=== PATIENT | male | born 1960 | race Caucasian/White ===

== ENCOUNTER → 2018-12-14 08:43 | Outpatient (CLI) | payer OTHER, SELFPAY ==
[2018-12-14 09:37] LABS: Influenza A and B by PCR Rapid Negative (Negative)
== END ==
PROVIDERS: Visit Provider Physician Assistant
DX: R50.9 Fever, unspecified (principal); R07.0 Pain in throat
CPT/HCPCS: 87070; 87400

== ENCOUNTER → 2019-02-18 08:15 | Outpatient (CLI) | payer OTHER, SELFPAY ==
[2019-02-18 09:52] LABS: Appearance Urine UA CLEAR; Bilirubin Urine UA NEGATIVE (NEGATIVE); Color Urine UA YELLOW; Glucose Urine UA NEGATIVE (Negative); Ketones Urine UA NEGATIVE (NEGATIVE); Leukocyte Esterase Urine UA NEGATIVE (NEGATIVE); Nitrite Urine UA NEGATIVE (Negative); Occult Blood Urine UA TRACE-LYSED (Negative); Protein Urine UA NEGATIVE (Negative); Specific Gravity Urine UA 1.015 (1.000-1.035); Urobilinogen Urine UA 0.2 E.U./dL (0.2)
[2019-02-18 09:53] LABS: Hematocrit 32.9 % (41-53); Mean Corpuscular HGB Conc 33.5 % (30-36); Mean Corpuscular Hemoglobin 29.8 PG (26-34); Mean Corpuscular Volume 89.2 fL (80-100); Platelet Count 229 X10^3/uL (150-400); Red Blood Cell Count 3.69 X10^6/uL (4.5-5.9); Red Cell Distribution Width 15.4 % (11.6-14.8); White Blood Cell Count 7.4 X10^3/uL (4.5-11.0)
[2019-02-18 10:07] LABS: Alanine Aminotransferase 18 IU/L (21-72); Albumin 3.8 g/dL (3.5-5.0); Albumin Globulin Ratio 1.3 (1.0-2.8); Alkaline Phosphatase 68 U/L (38-126); Aspartate Aminotransferase 16 IU/L (17-59); BUN Creatinine Ratio 34.4 (6-22); Bilirubin Total 0.5 mg/dL (0.2-1.3); Blood Urea Nitrogen 31 mg/dL (9-20); Calcium 9.9 mg/dL (8.4-10.2); Carbon Dioxide 28 mmol/L (22-32); Chloride 102 mmol/L (98-107); Cholesterol 136 mg/dL (140-199); Estimated Glomerular Filt Rate > 60.0 mL/min (>60); Glucose 104 mg/dL (80-110); HDL Cholesterol 58 mg/dL (40-60); HEMOLYSIS < 15 (0-50); LDL Cholesterol Calculated 66 mg/dL (<100); Potassium 5.1 mmol/L (3.4-5.1); Sodium 141 mmol/L (137-145); Total Protein 6.8 g/dL (6.3-8.2); Triglycerides 62 mg/dL (35-150)
[2019-02-18 10:18] LABS: Neutrophils Absolute Manual 4810 /uL (3000-5900); RBC Morphology Normal Morphology; Total Cells Counted 100
[2019-02-18 10:33] LABS: Prostate Specific Antigen Scrn 4.33 ng/mL (0.1-4.0)
[2019-02-18 10:35] LABS: Thyroid Stimulating Hormone 1.08 uIU/mL (0.47-4.68)
== END ==
PROVIDERS: PCP Family Medicine; Visit Provider Family Medicine
DX: F17.200 Nicotine dependence, unspecified, uncomplicated (principal); I10 Essential (primary) hypertension; Z12.5 Encounter for screening for malignant neoplasm of prostate; Z13.220 Encounter for screening for lipoid disorders; Z13.29 Encounter for screening for other suspected endocrine disorder; Z51.81 Encounter for therapeutic drug level monitoring
CPT/HCPCS: 36415; 80053; 80061; 81003; 84443; 85025; G0103

== ENCOUNTER → 2019-04-26 11:37 | Outpatient (CLI) | payer OTHER, SELFPAY ==
--- NOTE | 2019-04-26 11:38 | DI.MRI.S_ITS ---
PROCEDURE: MR LUMBAR SPINE WO CON INDICATIONS: Lumbar/thoracic Pain TECHNIQUE: Noncontrast sagittal T1 spin echo and T2 fast echo, coronal T2, sagittal STIR, axial T1 and T2 fast spin echo through the lumbar spine. In cases with scoliosis, additional coronal T2 fast spin echo may be performed. COMPARISON: None. FINDINGS: Image quality: Excellent. Alignment and Curvature: No plain films are available for comparison, for numbering purposes. Thus, for the purposes of this examination, 5 lumbar type vertebral bodies will be presumed, as denoted on the montage panel. This should be confirmed and correlated with plain films, prior to any lumbar spinal intervention. There is mild rightward curvature of the mid/upper lumbar spine a mild left curvature of the lower lumbar spine. Bone Marrow: Marrow is of normal overall signal. No acute vertebral body compression fractures. There is mild chronic wedging of L2 and L3. Spinal Cord: Conus medullaris terminates at the L1-L2 disc space level. Visualized cord demonstrates normal signal and size. Paraspinous Soft Tissues: No paravertebral masses. L1-L2: There is moderate disc height loss and desiccation. Mild diffuse disc bulge. Mild facet and ligament flavum hypertrophy. Mild epidural lipomatosis. Mild canal stenosis. No foraminal stenosis. L2-L3: Severe disc height loss. Mild diffuse disc bulge/osteophyte with superimposed small broad-based left posterolateral protrusion. Moderate high T2/fluid signal intensity within the L2-L3 disc space. Mild facet and ligamentum flavum hypertrophy. Mild epidural lipomatosis. Moderate canal stenosis. Mild left greater than right foraminal stenosis. L3-L4: Moderate disc height loss and desiccation. Moderate diffuse disc bulge/osteophyte. Mild facet and ligament of a moderate degree. Mild epidural lipomatosis. Severe canal stenosis. Mild left and moderate right subarticular foraminal stenosis. L4-L5: Mild disc height loss. Moderate disc desiccation. Mild diffuse disc bulge with superimposed broad-based right posterior lateral protrusion. Mild facet and ligamentum flavum hypertrophy. Mild epidural lipomatosis. Severe canal stenosis. Moderate right greater than left subarticular foraminal stenosis. L5-S1: Severe disc height loss and desiccation. Mild diffuse disc bulge/osteophyte. Mild bilateral facet and ligamentum flavum hypertrophy. Mild canal stenosis. Severe right and moderate left subarticular foraminal stenosis. Right L5 nerve root compression. IMPRESSION: 1. Possible fluid signal intensity within the L2-L3 disc space, which could indicate discitis. Clinical and laboratory correlation recommended. Followup MRI with and without intravenous contrast recommended to exclude progressive discitis/osteomyelitis. 2. Multilevel canal stenoses, worst at L3-L4 and L4-L5, where there are severe canal stenoses. 3. Multilevel foraminal stenoses, worst at L5-S1 on the right where there is associated intraforaminal nerve root compression. Recommend correlation with clinical symptoms to ascertain relevance of this finding. Dictated by: Debora Guo M.D. on 04/26/2019 at 13:25 Approved by: Debora Guo M.D. on 04/26/2019 at 13:31
== END ==
PROVIDERS: PCP Family Medicine; Visit Provider Family Medicine
DX: M54.5 Low back pain (principal); M54.6 Pain in thoracic spine; M48.061 Spinal stenosis, lumbar region without neurogenic claudication; M48.07 Spinal stenosis, lumbosacral region; R22.1 Localized swelling, mass and lump, neck; M54.16 Radiculopathy, lumbar region; Z98.890 Other specified postprocedural states; Z86.79 Personal history of other diseases of the circulatory system
CPT/HCPCS: 72148

== ENCOUNTER → 2019-06-23 10:17 | Outpatient (CLI) | payer OTHER, SELFPAY ==
--- NOTE | 2019-06-25 08:52 | DI.NM.S_ITS ---
DATE OF SERVICE: 06/23/2019 PROCEDURE: Pharmacological perfusion study. INDICATIONS: Dilated cardiomyopathy with LV dysfunction. RADIOPHARMACEUTICAL: 26.6 mCi technetium-99m Myoview IV was injected at stress and 27.2 mCi technetium-99m Myoview IV was injected at rest. CARDIAC STRESS: The patient underwent IV Lexiscan perfusion study under the supervision of an attending staff using standard Lexiscan protocol. The patient remained hemodynamically stable. Baseline EKG revealed sinus rhythm with some nonspecific ST changes. During stress, no convincing ischemic changes. No significant arrhythmias. No chest discomfort. Baseline blood pressure was 160/60 and stress blood pressure reported to be 200/94. RAW DATA: There was increased subdiaphragmatic activity. Gut shadow seen near the inferior border of the heart. The patient's weight is 210 pounds. GATED STUDY: Resting LV ejection fraction 61% and stress LV ejection fraction 64% without any obvious wall motion abnormalities. Resting end-diastolic volume 187 mL. No transient ischemic dilatation. TID ratio 1.02, which is within normal. Lung/heart ratio 0.39, which is within normal limits. MYOCARDIAL PERFUSION: Stress supine, resting supine, and stress prone images were compared to each other. It appears to be that the patient has a predominantly fixed, very small sized, mildly decreased perfusion of the distal inferolateral wall without any obvious reversible ischemia. CONCLUSION: The patient has a very small, mildly decreased perfusion of the distal inferolateral wall without any reversible ischemia. On raw images, there is increased subdiaphragmatic activity as well as gut shadow near the inferior border of the heart. The patient's weight is 210 pounds. On gated study, that segment is moving okay. There are no obvious wall motion abnormalities. Stress LV ejection fraction is 64%. Most likely, we are dealing with persistent tissue attenuation artifact. I don't see any significant perfusion defects suggestive of significant coronary artery disease. Hence, I will call this study likely a normal myocardial perfusion study. Clinical correlation is recommended. There was hypertensive response to Lexiscan. Severiano Guerrero - CARRIER OPERATOR/fn/ts doc#: [id number]/job#: [id number] dd: 06/24/2019 16:12:00 dt: 06/25/2019 08:08:00 DICTATING MD/COPIES TO: Nneka Perea MD COPIES MNE: KARENA
== END ==
PROVIDERS: PCP Family Medicine; Visit Provider Internal Medicine Cardiovascular Disease
DX: I42.0 Dilated cardiomyopathy (principal); I71.03 Dissection of thoracoabdominal aorta
CPT/HCPCS: 78452; 93016; 93017; 93018; A9502; J2785

== ENCOUNTER 2019-06-29 10:00 | Outpatient (RCR) | payer OTHER, SELFPAY | END 2019-07-12 09:53 | LOC: CAR 10:00 | PROVIDERS: PCP Family Medicine; Visit Provider Family Medicine | DX: I10 Essential (primary) hypertension (principal); I71.1 Thoracic aortic aneurysm, ruptured | CPT/HCPCS: 93798 ==

== ENCOUNTER 2019-09-01 10:00 | Outpatient (RCR) | payer OTHER, SELFPAY | END 2020-03-01 07:38 | LOC: CAR 10:00 | PROVIDERS: PCP Family Medicine; Referring Provider Physician Assistant Surgical; Visit Provider Physician Assistant Surgical | DX: I71.03 Dissection of thoracoabdominal aorta (principal) | CPT/HCPCS: 93798 ==

== ENCOUNTER → 2020-04-12 10:56 | Outpatient (CLI) | payer OTHER, SELFPAY ==
--- NOTE | 2020-04-12 11:00 | DIET.PN ---
Dietary Progress Note Assessment: 59y M referred to nutrition for help c Mediterranean diet and low sodium as pt has hx of aeortic dissection and has gained 50# after pausing cardiac rehab due to covid. 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 Pt has made healthy changes since pausing cardiac rehab including using avocado oil and olive oil for cooking, hasn't eaten potato chips, peanuts, ice cream for months, but loves potato, rice. Pt is active at home but no formal exercise. He knows this is why he has gained weight. Pt is retired so has time to exercise, just needs accountability. would like to get a stationary bike, has weights and bands but not using. Usual Day: wakes 5-6am drinks 20oz coffee c cream and splenda hangs out, showers 7-8am ADLs-mowing lawn, takes boat out sometimes 10:30-1pm: tuna or chicken salad sandwich, 2 pieces toast c pb 5pm: baked pork loins c baked potato or rice c corn on cob, stir chavira (pea pods, cabbage, carrots, celery, green onions-chicken or shrimp) c rice tacos (corn tortillas), meatloaf once per month, order out chicken charly TV watching and reading in evening twice per month has some popcorn in evening goes to bed 9-10pm beer once or twice per week has 2 pepsis every few days Vegetables cooked lightly rather than over cooked and mushy, grilled, likes mixed garden salad c sunflower seeds and [place] Ht: 6ft WT: 230#, wants to reach 200# UBW: got down to 180# in Jun 2019 but feels this is too low as was 185# in high school BMI 31.2 Labs: Cholesterol managed c statin use Nutrition Diagnosis: morbid obesity r/t undesirable food choices and physical inactivity aeb 50# weight gain in 10mo, no regular physical activity, pt dislikes most vegetables so relies on PRO and CHO c little intake f/v/soluble fiber. Interventions: 1. Discussed weight loss in context of plate balance. Educated pt on importance of modifying all meals to contain 1/4 CHO (which includes corn, peas, potatoes), 1/4 protein, and 1/2 fruits and veggies. Discussed PRO and CHO are high kcal so this is way to moderate caloric intake. 2. Discussed importance of starting home exercise routine. Pt feels like morning exercise most successful for him. Goal of 10min walking 6d/w to start. Pt will look into stationary bike. 3. To address sodium restriction, encouraged pt to mix unsalted sunflower seeds c salted and continue titrating salt down to sodium free seeds. 4. To address weight loss and support cardiovascular health, educated pt on role of soluble fiber in diet and Mediterranean diet. Pt enjoys apples and black beans, will eat these more frequently. 5. Provided pt c Mediterranean diet handouts, meal ideas (breakfast, snack, lunch, dinner) and [employer] which has more menu ideas. Encouraged pt to directly work c his to highlight foods he is willing to try in order to expand his current food routine. Diet Order: 2g sodium restriction Monitoring/Evaluations: f/u in one month to discuss progress and problem solve barriers. Discuss added sugar and pepsi consumption (smaller cans less frequently?)
== END ==
PROVIDERS: PCP Student in an Organized Health Care Education/Training Program; Referring Provider Student in an Organized Health Care Education/Training Program; Visit Provider Student in an Organized Health Care Education/Training Program
DX: E66.9 Obesity, unspecified (principal); Z68.31 Body mass index [BMI] 31.0-31.9, adult; Z71.3 Dietary counseling and surveillance; Z86.79 Personal history of other diseases of the circulatory system
CPT/HCPCS: 97802

== ENCOUNTER → 2020-05-08 11:02 | Outpatient (CLI) | payer OTHER, SELFPAY ==
--- NOTE | 2020-05-08 11:04 | DIET.PN ---
Dietary Progress Note Assessment: 59y M here for f/u regarding Mediterranean diet and low sodium for cardiovascular health. Pt had echo and wasn't happy with results of 60% backflow in one atrium. He is dedicated to losing weight and setting up a healthy pattern for the rest of his life. Per previously set goals: Pt wants to lose 30# and has lost 1# so far, likely was in a gaining pattern so turned this around. Pt is practicing portion control, especially to limit high carb items to follow plate balance: eating far less rice, bread, potatoes. To address reducing sodium in diet: doing half and half for sunflower seeds (salted vs unsalted) and feels like this was an easy switch. Pt started walking routine for about 1w then stopped secondary to weather. Pt will dedicate himself to purchasing a stationary bike. Pt and his have been experimenting with new recipes to try to find some good ones to implement more regularly. Monitoring/Evaluations: f/u telehealth in 4w to assess progress and problem solve barriers.
== END ==
PROVIDERS: PCP Student in an Organized Health Care Education/Training Program; Referring Provider Student in an Organized Health Care Education/Training Program; Visit Provider Student in an Organized Health Care Education/Training Program
DX: I99.8 Other disorder of circulatory system (principal); Z71.3 Dietary counseling and surveillance
CPT/HCPCS: 97803

== ENCOUNTER → 2020-05-30 08:46 | Outpatient (CLI) | payer OTHER, SELFPAY ==
[2020-05-30 10:15] LABS: Alanine Aminotransferase 20 IU/L (<50); Albumin 3.9 g/dL (3.5-5.0); Albumin Globulin Ratio 1.5 (1.0-2.8); Alkaline Phosphatase 52 U/L (38-126); Aspartate Aminotransferase 23 IU/L (17-59); BUN Creatinine Ratio 28.3 (6-22); Bilirubin Total 0.6 mg/dL (0.2-1.3); Blood Urea Nitrogen 32 mg/dL (9-20); Calcium 9.3 mg/dL (8.4-10.2); Carbon Dioxide 30 mmol/L (22-32); Chloride 106 mmol/L (98-107); Cholesterol 117 mg/dL (140-199); Estimated Glomerular Filt Rate > 60.0 mL/min (>60); Globulin 2.6 g/dL (1.7-4.1); Glucose 108 mg/dL (80-110); HDL Cholesterol 57 mg/dL (40-60); HEMOLYSIS < 15 (0-50); LDL Cholesterol Calculated 49 mg/dL (<100); Sodium 138 mmol/L (137-145); Total Protein 6.5 g/dL (6.3-8.2); Triglycerides 53 mg/dL (35-150)
== END ==
PROVIDERS: PCP Student in an Organized Health Care Education/Training Program; Referring Provider Student in an Organized Health Care Education/Training Program; Visit Provider Internal Medicine Cardiovascular Disease
DX: I10 Essential (primary) hypertension (principal); I71.03 Dissection of thoracoabdominal aorta
CPT/HCPCS: 36415; 80053; 80061

== ENCOUNTER → 2020-06-05 11:05 | Outpatient (CLI) | payer OTHER, SELFPAY ==
--- NOTE | 2020-06-05 16:58 | DIET.PN ---
Dietary Progress Note Assessment: 59y M attending f/u telehealth appt c RD for help with weight loss and low sodium diet. Pt reports great progress since our last visit together 6w ago. Pt said he needed the accountability and a kick to get started in curating a new lifestyle for the long run. Pt has cut back considerably on his CHO, sodium, and saturated fat intake. Pt is using [employer] to meal prep and add new recipes to his menu rotation for both he and his . He reports some are great and some he will not make again. Pt purchased a stationary bike and is riding it 20 minutes every other day. He is working up to 30 minutes per day. Pt continues to endorse his plan to reach 200# and stay there for his overall and cardiovascular health. HT: 6' WT: 227# (-3#) Labs: TG 53 Nutrition Diagnosis: Resolving morbid obesity r/t undesirable food choices and physical inactivity aeb 50# weight gain in 10mo, no regular physical activity, pt dislikes most vegetables so relies on PRO and CHO c little intake f/v/soluble fiber. Monitoring/Evaluations: telehealth f/u in 6w to assess progress and for accountability
== END ==
PROVIDERS: PCP Student in an Organized Health Care Education/Training Program; Referring Provider Student in an Organized Health Care Education/Training Program; Visit Provider Student in an Organized Health Care Education/Training Program
DX: E66.01 Morbid (severe) obesity due to excess calories (principal); Z68.30 Body mass index [BMI] 30.0-30.9, adult
CPT/HCPCS: 97803

== ENCOUNTER → 2021-02-11 08:54 | Outpatient (CLI) | payer OTHER, SELFPAY ==
[2021-02-11 10:24] LABS: COVID19 -Nasal RAPID Negative (Negative)
== END ==
PROVIDERS: PCP Student in an Organized Health Care Education/Training Program; Visit Provider Surgery
DX: Z20.822 Contact with and (suspected) exposure to COVID-19 (principal)
CPT/HCPCS: 87635; C9803

== ENCOUNTER 2021-02-12 06:26 | Day surgery (SDC) | payer OTHER, SELFPAY ==
[2021-02-04 17:00] VITALS: BP 162/80; PULSE 61; RESP 16; TEMP 36.6; O2SAT 98
[2021-02-08 08:18] VITALS: BMI 32.4
[2021-02-12] VITALS (24 sets, daily range): BP systolic 130–169; BP diastolic 56–87; PULSE 53–77; RESP 10–18; TEMP 35.8–37.2; O2SAT 92–98; BMI 32.4
[2021-02-12] MEDS: LACTATED RINGERS 1,000 ML 42 ML IV ×2 (07:18→09:37)
--- NOTE | 2021-02-12 07:31 | PM.HP.1 ---
History of Present Illness History of Present Illness Date Patient Seen: 02/12/21 Time Patient Seen: 07:31 Chief complaint: SDC Narrative: 60-year-old man with a large incisional hernia here for elective open ventral hernia retro rectus repair. He was last seen in November 2020. In the interval the hernia has increased in size and discomfort no episodes of intestinal obstruction within the hernia. Patient History Medical History Cardiomyopathy Chicken pox Chronic back pain (~1984) Chronic cough (~2014) Claudication of both lower extremities (~04/2019) Dissection of thoracoabdominal aorta Fractures (~1969) History of transfusion HTN (hypertension) Kidney disease Kidney stones Measles Migraines (~1968) Thoracic aortic aneurysm Vision disorder Surgical History Anesthesia History of appendectomy (~2008) History of cholecystectomy (~2013) History of hernia repair (~1985) History of thoracic aortic aneurysm repair History of total knee replacement (~2015) Family & Social History Family History Father Hypertension Grandfather Stroke Social History: household members spouse Tobacco & Substance use: Smoking Status Former smoker alcohol intake current alcohol intake frequency a few times a week Substance Use Type does not use Meds Home Medications and Allergies Home Medications Medication Instructions Recorded Confirmed Type acetaminophen 325 mg capsule 325 mg PO Q6H PRN 01/05/19 02/12/21 History aspirin 81 mg tablet,delayed 81 mg PO DAILY 02/07/19 02/12/21 History release (Adult Low Dose Aspirin) atorvastatin 20 mg tablet 20 mg PO BEDTIME 09/15/19 02/12/21 History carvedilol 6.25 mg tablet 12.5 mg PO BID tab 09/15/19 02/12/21 History losartan 100 mg tablet 100 mg PO DAILY #90 tab 11/27/20 02/12/21 Rx spironolactone 25 mg tablet 25 mg PO QPM #90 tab 11/27/20 02/12/21 Rx cyclobenzaprine 10 mg tablet 10 mg PO Q8H #90 tab 01/07/21 02/12/21 Rx ibuprofen 600 mg tablet 600 mg PO TID 08/24/21 08/24/21 History Allergies Allergy/AdvReac Type Severity Reaction Status Date / Time No Known Drug Allergies Allergy Verified 02/12/21 07:15 Review of Systems Review of Systems ROS: Yes All systems reviewed with the patient and are negative except as otherwise documented Exam Vital Signs (past 8 hours): - 02/12/21 07:07 Temperature 97.0 F L Pulse Rate 53 L Respiratory Rate 16 Blood Pressure 140/60 Pulse Oximetry 98 Oxygen Delivery Method Room Air Narrative Exam Narrative: Constitutional-he is oriented to person, place and time. No apparent distress Cardiovascular- regular rate, no peripheral edema Pulmonary-unlabored respiratory effort, no audible wheezing Abdominal-soft, reducible large incisional hernia Musculoskeletal-no cyanosis or clubbing Neurological-nonfocal, normal strength throughout, normal gait. Skin-warm and dry Assessment & Plan Assessment and plan (1) Incisional hernia: Qualifiers: Obstruction and gangrene presence: without obstruction or gangrene Qualified Code(s): K43.2 - Incisional hernia without obstruction or gangrene Status: Acute Assessment & Plan narrative: 60-year-old man with a large incisional ventral hernia here for elective repair. Plan is for a open ventral hernia repair retro rectus with mesh. We discussed the technical nature of the operation and the anatomical abdominal wall defect that needs to be corrected. Operative risks including perioperative complications, bleeding, infection, recurrence, seroma formation, damage to surrounding structures, bowel injury chronic pain were discussed. His questions have been answered he is in agreement with this plan.
[2021-02-12] MEDS: CEFAZOLIN 1 GM VIAL 2 GM IV (08:09)
--- NOTE | 2021-02-12 08:17 | SUR.OPER ---
Supine on padded OR bed, head on pillow, arms secured on padded arm boards at <90 degrees abduction, legs uncrossed, safety belt at thigh, tape over blanket over lower legs.
[2021-02-12] MEDS: BUPIVACAINE 0.5% (PF) VIAL 30 ML INJ (08:24)
[2021-02-12] MEDS: ACETAMINOPHEN IV 1,000 MG/100 ML VIAL 400 MG IV (09:05)
[2021-02-12] MEDS: OXYCODONE IR 5 MG TABLET PO ×2 (11:01→11:34)
--- NOTE | 2021-02-12 11:28 | SUR.PHASEI ---
Dr Newell to bedside to see patient and updated on AGUILA drainage of 65ml and Pt still needing Oxygen at 2L NC and ABD dressing placed under binder.
--- NOTE | 2021-02-12 11:46 | SUR.PHASEII ---
Incentive spirometer up to 1750ml.
--- NOTE | 2021-02-12 11:58 | PM.OP.1 ---
Operative Date/Time/Diagnoses Date of procedure: 02/12/21 Time of procedure: 11:59 Pre-op diagnosis: Incisional ventral hernia Post-op diagnosis: same Procedure & Clinicians Procedure: Open ventral repair retro rectus with mesh Same procedure as scheduled: Yes Indications: Enlarging incisional hernia Surgeon: Hong Newell Click Yes if Unassisted: Yes Anesthesia Type: General Operative Notes Findings: east timorese cheese defect along the midline superior to the umbilicus. Specimen(s): none sent Estimated Blood Loss (mL): 100 Procedure in detail: Patient was brought to the operating room placed supine on the table. Bilateral lower extremity compression devices were applied. They received 2 g of Ancef prior to skin incision. Prepped and draped in sterile fashion, ioban was placed. Time-out was performed. A midline incision was made superior to the umbilicus with a knife. The previous midline scar was excised. The subcutaneous tissue was divided to expose the midline fascia. The fascia had a east timorese cheese defect extending from the umbilicus to xiphoid, the largest defect was approximately 8 cm. The fascia was grasped elevated and sharply opened. Complete lysis of all visceral adhesions was performed with sharp dissection. A towel was then placed over the visceral content to protect it out of harms way. The retromuscular space was entered by incising the posterior rectus sheath approximately 1 cm from its edge. The retromuscular plane was developed using electrocautery with care to protect the neurovascular structures to the extent of the semilunaris. The retrorectus space was developed in the same fashion on the contralateral side. The bilareal spaces were then connected superiorly near the xiphoid and inferiorly near the umbilicus. The posterior sheath was then closed in interrupted fashion with Eithibond followed by running 2-0 vicryl. I selected 2 Bard 6x 6 inch polypropelene soft tissue mesh placed in shaista configuration in the retro rectus space. Each mesh was anchored with interrupted Ethibond in transfascial fashion in four quadrants using the kota bryan device such that the mesh lay under physiologic tension. A 10 Vietnamese flat drain was placed anterior to the mesh and benhind the anterior sheath brought out through the skin. The anterior sheath/ linea alba was then closed in interrupted fashion with Ethibond without tension. The anterior sheath closure was then reinforced with running 2-0 vicryl suture. Hemostasis was checked. The subcutaneous tissue was then reapproximated using Vicryl skin closed with running 4-0 Monocryl followed by the application of Dermabond. Patient emerged from anesthesia was extubated and transferred to recovery room in stable condition. Complications: none Post-operative Condition: stable
--- NOTE | 2021-02-12 12:01 | SUR.PHASEII ---
1201 Pt transferred to OPD 2 with Jemima Robertson with SBAR report at bedside.
--- NOTE | 2021-02-12 12:19 | SUR.PHASEII ---
Received report from above nurse and assumed care of pt. 02 sats 9%- 95% on RA. IS at bedside and pt using effectively (1999). Will monitor for pain relief and 02 sat. No complaints voiced. VSS. See flow nsg notes.
--- NOTE | 2021-02-12 12:25 | SUR.PHASEII ---
disposition to be determined based on pain control and [address] Newell to evaluate.
--- NOTE | 2021-02-12 14:11 | SUR.PHASEII ---
Attempted to void, sitting on bedside with assistance. Unable to void. Bladder scanner used [id number]
[2021-02-12] MEDS: OXYCODONE IR 5 MG TABLET 10 MG PO (15:54)
[2021-02-12] MEDS: ACETAMINOPHEN 325 MG TABLET 650 MG PO ×2 (18:27→23:35)
[2021-02-12] MEDS: OXYCODONE IR 10 MG TABLET PO ×2 (18:28→23:36)
[2021-02-12] MEDS: LACTATED RINGERS 1,000 ML 100 ML IV (18:30)
--- NOTE | 2021-02-12 19:10 | PC.NURSE ---
Patient transferred from PACU up to at 1730. Fluids started and pain medication given. Patient resting comfortably with ice pack to abdomen. Dressings CDI with abdominal binder over top. Patient voided in PACU. Call light and belongings within reach. was at bedside and left for the evening.
[2021-02-12] MEDS: LOSARTAN 50 MG TABLET 100 MG PO (21:27)
[2021-02-12] MEDS: carvediloL 12.5 MG TABLET PO (21:27)
[2021-02-12] MEDS: CYCLOBENZAPRINE 10 MG TABLET PO (21:27)
--- NOTE | 2021-02-13 02:51 | PC.NURSE ---
Patient is alert and oriented. Breath sounds diminished at bases with RA sat of 95%. HRR. BP trending high and was 151/79 at time of assessment. Denied nausea. BT present and states he is passing flatus. Dressings to abdomen CDI. AGUILA is intact and compressed. Wearing abdominal binder. States he has no pain unless he moves; discussed importance of being able to move and not lie stationary so patient agreeable to taking pain medication as pain did increase to 6-7/10 with movement so medicated with oxycodone. and ice applied. Gait not assessed as has not yet been out of bed. Is wearing bilateral calf SCD's. Fall risk score is low.
[2021-02-13] MEDS: OXYCODONE IR 10 MG TABLET PO ×2 (04:04→08:20)
[2021-02-13] MEDS: LACTATED RINGERS 1,000 ML 100 ML IV (04:04)
[2021-02-13 04:10] VITALS: BP 143/60; PULSE 68; RESP 16; TEMP 36.6; O2SAT 95
[2021-02-13] MEDS: ACETAMINOPHEN 325 MG TABLET 650 MG PO (06:11)
[2021-02-13] MEDS: CYCLOBENZAPRINE 10 MG TABLET PO (06:12)
[2021-02-13 07:42] VITALS: BP 131/68; PULSE 61; RESP 18; TEMP 36.5; O2SAT 96
[2021-02-13 08:21] VITALS: BP 165/67; PULSE 62
[2021-02-13] MEDS: carvediloL 12.5 MG TABLET PO (08:21)
[2021-02-13] MEDS: SPIRONOLACTONE 25 MG TABLET PO (08:21)
--- NOTE | 2021-02-13 08:51 | CM.DANOTE ---
DCP: Case received, EMR reviewed and met with patient. Introduced self and role. Was able to obtain information from patient regarding his baseline activity status prior to surgery. DCP assessment completed with information currently available. Patient is a 60 year old male who admitted yesterday afternoon to the care of the surgical team. PCP: Dr. Encinas. Payer: confirmed: Anyi JAMES. Patient came to the hospital via private vehicle for a surgical procedure. He had open ventral hernia repair, elective, secondary to having a hernia. Met with patient in his room. He is alert and oriented, and was sitting up in bed. He is independent at his baseline, and is retired. He and his , Melvina, reside here in [place]. P: DCP to continue to follow. Patient should be able to go home when deemed medically stable by surgeon. Jacqueline Conteh RN/Journeyman Machinist
--- NOTE | 2021-02-13 10:13 | PC.NURSE ---
A&Ox4. BP elevated, all other vitals stable. Pain 6/10, given PRN 10 mg oxycodone with some relief. Good appetite. Passing gas. Discharge instructions reviewed, IV removed, questions answered. Wheeled off of unit at 10:20, driving home.
== END 2021-02-13 10:25 | disposition home or self-care (01) ==
LOC: OR 17:42 → AC 02-13 09:25
PROVIDERS: PCP Student in an Organized Health Care Education/Training Program; Referring Provider Surgery; Visit Provider Surgery
PROC: (CPT 49560; principal; 2021-02-12 07:45)
DX: K43.2 Incisional hernia without obstruction or gangrene (principal); I10 Essential (primary) hypertension
CPT/HCPCS: 49560; 49568; 87635; C1781; C9803; J0131; J0690; J1100; J1170; J1885; J2250; J2405; J2704; J3010

== ENCOUNTER → 2021-08-21 12:24 | Outpatient (CLI) | payer OTHER, SELFPAY ==
[2021-02-12 18:04] VITALS: BMI 32.4
[2021-08-21 14:30] LABS: Hematocrit 38.6 % (41-53); Hemoglobin 13.2 g/dL (13.5-17.5)
[2021-08-21 14:41] LABS: BUN Creatinine Ratio 26.5 (6-22); Blood Urea Nitrogen 31 mg/dL (9-20); Calcium 9.7 mg/dL (8.4-10.2); Carbon Dioxide 29 mmol/L (22-32); Chloride 105 mmol/L (98-107); Estimated Glomerular Filt Rate > 60.0 mL/min (>60); Glucose 92 mg/dL (80-110); HEMOLYSIS < 15 (0-50); Potassium 4.3 mmol/L (3.4-5.1); Sodium 140 mmol/L (137-145)
[2021-08-21 15:12] LABS: Prostate Specific Antigen 5.26 ng/mL (0.10-4.00)
== END ==
PROVIDERS: PCP Student in an Organized Health Care Education/Training Program; Referring Provider Student in an Organized Health Care Education/Training Program; Visit Provider Student in an Organized Health Care Education/Training Program
DX: R97.20 Elevated prostate specific antigen [PSA] (principal); I10 Essential (primary) hypertension; R06.2 Wheezing
CPT/HCPCS: 36415; 80048; 84153; 85014; 85018

== ENCOUNTER → 2021-09-04 16:30 | Outpatient (CLI) | payer OTHER, SELFPAY ==
[2021-02-12 18:04] VITALS: BMI 32.4
[2021-09-04 17:19] LABS: COVID19 -Nasal RAPID Negative (Negative)
== END ==
PROVIDERS: PCP Student in an Organized Health Care Education/Training Program; Referring Provider Internal Medicine; Visit Provider Internal Medicine
DX: Z20.822 Contact with and (suspected) exposure to COVID-19 (principal)
CPT/HCPCS: 87635; C9803

== ENCOUNTER → 2021-09-05 10:43 | Outpatient (CLI) | payer OTHER, SELFPAY ==
[2021-02-12 18:04] VITALS: BMI 32.4
--- NOTE | 2021-09-11 10:46 | PM.PFT.1 ---
Pulmonary Function Test Referral & Results Date Patient Seen: 09/05/21 Requesting provider: Scotty Encinas Results: The spirometry demonstrates an FVC of 4.17 L which is 83% of predicted. The FEV1 was measured at 2.60 L which is 68% of predicted. The FEV1/FVC ratio was 62 which is 83% of predicted. Following the administration of bronchodilator there was no appreciable change Lung volumes show an SVC of 4.13 L which is 82% of predicted. The diffusing capacity was measured at 23.27 which is 66% of predicted. No hemoglobin value was provided, so no correction for potential anemia could be made, if appropriate. The maximum voluntary ventilation was reduced Interpretation: This study demonstrates moderate obstructive lung disease based on reduction FEV1 although FEV1/FVC ratio is relatively preserved. There is no benefit following bronchodilator however shape a flow volume loop also supports the presence of some degree of obstructive lung disease Lung volumes are minimally reduced suggesting the possibility of very mild restrictive lung disease although I do not believe this explains the abnormality in FEV1 above Diffusing capacity is also moderately reduced suggesting disease at the capillary alveolar level Clinical correlation suggested Charges Tests/bronchodilator: Complete PFT: with bronchodilator Tests: Yes Diffusing capacity
== END ==
PROVIDERS: PCP Student in an Organized Health Care Education/Training Program; Referring Provider Student in an Organized Health Care Education/Training Program; Visit Provider Student in an Organized Health Care Education/Training Program
DX: J44.9 Chronic obstructive pulmonary disease, unspecified (principal); R06.2 Wheezing
CPT/HCPCS: 94060; 94726; 94729

== ENCOUNTER → 2022-05-06 12:45 | Outpatient (CLI) | payer OTHER, SELFPAY ==
[2021-02-12 18:04] VITALS: BMI 32.4
[2022-05-06 15:24] LABS: Prostate Specific Antigen 5.77 ng/mL (0.10-4.00)
== END ==
PROVIDERS: PCP Student in an Organized Health Care Education/Training Program; Referring Provider Urology; Visit Provider Urology
DX: R97.20 Elevated prostate specific antigen [PSA] (principal)
CPT/HCPCS: 36415; 84153

== ENCOUNTER → 2022-05-27 12:46 | Outpatient (CLI) | payer OTHER, SELFPAY ==
[2021-02-12 18:04] VITALS: BMI 32.4
--- NOTE | 2022-05-27 12:49 | DI.RAD.S_ITS ---
PROCEDURE: XR KNEE RT 3V INDICATIONS: Acute on chronic knee arthritis TECHNIQUE: 3 views of the knee were acquired. COMPARISON: None. FINDINGS: Bones: No fractures or dislocations. [id number] tricompartmental osteoarthritis is seen most notably in medial femoral tibial compartment with joint space narrowing, subchondral sclerosis and marginal osteophyte formation. No suspicious bony lesions. Soft tissues: Small to moderate suprapatellar joint effusion is seen. No suspicious soft tissue calcifications. IMPRESSION: [id number] tricompartmental osteoarthritis and small to moderate suprapatellar joint effusion. No acute fracture or dislocation. Dictated by: Harshil Suarez M.D. on 05/27/2022 at 14:58 Approved by: Harshil Suarez M.D. on 05/27/2022 at 15:08
== END ==
PROVIDERS: PCP Student in an Organized Health Care Education/Training Program; Referring Provider Student in an Organized Health Care Education/Training Program; Visit Provider Student in an Organized Health Care Education/Training Program
DX: M17.11 Unilateral primary osteoarthritis, right knee (principal); M25.461 Effusion, right knee
CPT/HCPCS: 73562

== ENCOUNTER 2023-03-16 00:59 | Emergency (ER) | payer OTHER, SELFPAY ==
[2021-02-12 18:04] VITALS: BMI 32.4
[2023-03-16] VITALS (11 sets, daily range): BP systolic 149–178; BP diastolic 67–74; PULSE 61–76; RESP 18–45; TEMP 35.9–36.1; O2SAT 93–96; BMI 30.5
--- NOTE | 2023-03-16 01:20 | DI.RAD.S_ITS ---
PROCEDURE: XR CHEST 1V INDICATIONS: SOB, wheezing, chest congestion. TECHNIQUE: One view of the chest was acquired. COMPARISON: None. FINDINGS: Surgical changes and devices: Postsurgical changes demonstrated within the mediastinum with multiple mediastinum wires. Lungs and pleura: Lungs are clear. No pleural effusions or pneumothorax. Mediastinum: Mediastinal contours appear normal. Heart size is normal. Bones and chest wall: No suspicious bony lesions. Overlying soft tissues appear unremarkable. IMPRESSION: 1. No acute cardiopulmonary disease. Dictated by: Cristian Mccallum M.D. on 03/16/2023 at 1:43 Approved by: Cristian Mccallum M.D. on 03/16/2023 at 1:46
--- NOTE | 2023-03-16 01:27 | ED.SOB ---
HPI - SOB/Dyspnea General Chief Complaint: Upper Respiratory Symptoms Stated Complaint: SOB/ CHEST CONGESTION SINCE 11:30 AM Time Seen by Provider: 03/16/23 01:18 Source: patient Mode of arrival: Ambulatory Limitations: no limitations History of Present Illness HPI Narrative: This is a 62-year-old male with history of aortic dissection with graft repair 5 years ago which has been stable, hypertension, dyslipidemia, early COPD, CHF with complaint of nasal congestion that started yesterday, a tickle in his throat and started getting tight and wheezy last night at about 5:00 p.m. which has gotten increasingly worse as the night has progressed. States little bit worse when he lays flat. He is had cough but nonproductive. He states no real chest pain or pressure, maybe some light change. No fevers or chills that he is aware. He states nasal congestion is present. No sore throat. He did have some nausea and 1 episode of vomiting. Patient states he thinks it was from all the phlegm. No diarrhea, no constipation, no dysuria urgency or frequency. No new swelling of extremities. Patient states he is had PFT testing and was told he had a precursor of COPD. He is on montelukast which he states helped his wheezing in the past but has never had prescriptions for albuterol or nebulizers. He states he did get breathing treatments during prior hospitalizations but not as an outpatient. Patient states he is on a aspirin 81 mg daily but no other thinners, atorvastatin, carvedilol, losartan, montelukast and spironolactone daily. States prior repair of his aortic dissection, follows with vascular at [place]. Patient has had prior hernia repair with mesh. States no known drug allergies. Has a 20 pack-year history of tobacco, has since quit does smoke cigars fairly regularly, occasional EtOH but not daily, no recreational or illicit drugs. PCP was Dr. Encinas who has recently left the area. Related Data Home Medications Medication Instructions Recorded Confirmed acetaminophen 325 mg capsule 325 mg PO Q6H PRN Pain 01/05/19 05/26/22 aspirin 81 mg tablet,delayed 81 mg PO DAILY 02/07/19 05/26/22 release (Adult Low Dose Aspirin) carvedilol 6.25 mg tablet 12.5 mg PO BID 09/15/19 05/26/22 ibuprofen 600 mg tablet 600 mg PO TID 02/12/21 05/26/22 Previous Rx's Medication Instructions Recorded acetaminophen 325 mg capsule 650 mg PO QID PRN pain #60 caps 02/12/21 (Tylenol) spironolactone 25 mg tablet 25 mg PO QPM #90 tabs 03/11/22 montelukast 10 mg tablet 10 mg PO DAILY #90 tabs 09/20/22 atorvastatin 20 mg tablet 20 mg PO BEDTIME #90 tabs 10/02/22 losartan 100 mg tablet 100 mg PO DAILY #90 tabs 01/05/23 cyclobenzaprine 10 mg tablet 10 mg PO Q8H #90 tabs 02/16/23 albuterol sulfate 90 mcg/actuation 2 puff inhalation Q4-6H PRN 03/16/23 aerosol inhaler shortness of breath or wheezing #8.5 grams prednisone 10 mg tablets in a dose See Rx Instructions PO .COMPLEX 03/16/23 pack #21 ea Allergies Allergy/AdvReac Type Severity Reaction Status Date / Time No Known Drug Allergies Allergy Verified 03/16/23 01:03 Review of Systems Review of Systems ROS Unobtainable: All systems reviewed & are unremarkable except as noted in HPI and below Patient History Medical History Cardiomyopathy Chicken pox Chronic back pain (~1984) Chronic cough (~2014) Claudication of both lower extremities (~04/2019) Dissection of thoracoabdominal aorta Essential hypertension Fractures (~1969) History of transfusion Incisional hernia Kidney disease Kidney stones Measles Migraines (~1968) Thoracic aortic aneurysm Vision disorder Surgical History Anesthesia History of appendectomy (~2008) History of cholecystectomy (~2013) History of hernia repair (~1985) History of thoracic aortic aneurysm repair History of total knee replacement (~2015) Family History Father Hypertension Grandfather Stroke Social History marital status: household members: spouse occupational status: previously employed Smoking Status: Former smoker Tobacco: How many years used: 40 alcohol intake: current substance use type: does not use Smoking Status: Former smoker alcohol intake frequency: a few times a week Substance Use Type: does not use Exam Narrative Exam Narrative: GEN: well nourished, well appearing male, alert and oriented x 3, patient appears to be in mild distress. HEENT: Atraumatic, pupils are equal round reactive to light, extraocular movements are intact, nares have some mild nasal congestion, there is no conjunctival pallor. Throat is clear without any exudates, erythema, tonsillar enlargement or uvular deviation HEART: Regular rate and rhythm without murmur, clicks, rubs. Pulses are equal in upper and lower extremities LUNGS:Lungs breath sounds equal bilaterally, patient has bilateral wheezes in upper and lower lungs, no tachypnea, no accessory muscle use. Can speak in full sentences. No rales, crackles or rhonchi, chest moves symmetrically ABD:bowel sounds normal, soft, non-tender, no guarding, rebound, rigidity, no masses noted, no hepatosplenomegaly :No CVA tenderness MSCL: Non-tender, no muscle atrophy, muscles strength 5/5 upper and lower extremities, full range of motion, normal gait NEURO:CN 2-12 intact, sensation normal SKIN: No rash, erythema or other skin changes. Initial Vital Signs Initial Vital Signs: Vital Signs Temperature 97.0 F L 03/16/23 01:03 Pulse Rate 72 03/16/23 01:03 Respiratory Rate 19 03/16/23 01:03 Blood Pressure 173/73 H 03/16/23 01:03 Pulse Oximetry 95 03/16/23 01:03 Oxygen Delivery Method Room Air 03/16/23 01:03 Course Orders Ordered: ED Orders 03/16/23 01:11 Respiratory Panel (Film Array) Stat 03/16/23 01:18 EKG-12 Lead Stat 03/16/23 01:19 RT Consult Eval and Treat NOW 03/16/23 01:20 XR chest 1V Stat 03/16/23 01:48 Complete Blood Count AUTO DIFF Stat Comprehensive Metabolic Panel Stat Lipase Stat NT-proBNP (BNP-Adult 18+) Stat PTT Partial Thromboplastin Malcolm Stat Prothrombin Time INR Stat Troponin & CK Cardiac Panel Stat Discontinued Medications Albuterol (Albuterol Hfa Prepack) 1 box MISC SEEINSTR ONE Stop: 03/16/23 03:05 Last Admin: 03/16/23 03:40 Dose: 1 box Documented By: PIERRE Albuterol/Ipratropium (Albuterol/Ipratropium 3 Ml Ampul) 3 ml INH NOW ONE Stop: 03/16/23 01:23 Last Admin: 03/16/23 01:40 Dose: 3 ml Documented By: MINH Albuterol/Ipratropium (Albuterol/Ipratropium 3 Ml Ampul) 3 ml INH NOW ONE Stop: 03/16/23 02:20 Last Admin: 03/16/23 02:23 Dose: 3 ml Documented By: MINH Methylprednisolone (Methylprednisolone 125 Mg/2 Ml Vial) 125 mg IV NOW ONE Stop: 03/16/23 01:27 Last Admin: 03/16/23 01:46 Dose: 125 mg Documented By: PIERRE Vital Signs Vital signs: Vital Signs - 8 hr 03/16/23 01:03 03/16/23 01:41 03/16/23 02:23 Temperature 97.0 F L Pulse Rate 72 65 71 Respiratory Rate 19 18 19 Blood Pressure 173/73 H Pulse Oximetry 95 96 95 Oxygen Delivery Method Room Air Room Air Room Air 03/16/23 01:51 03/16/23 02:00 03/16/23 02:01 Temperature Pulse Rate 62 61 63 Respiratory Rate 45 H 43 H 43 H Blood Pressure Pulse Oximetry 93 94 93 Oxygen Delivery Method 03/16/23 02:01 03/16/23 02:30 03/16/23 02:30 Temperature Pulse Rate 61 Respiratory Rate 25 H Blood Pressure 155/70 H 170/70 H Pulse Oximetry 96 Oxygen Delivery Method 03/16/23 03:00 03/16/23 03:00 03/16/23 03:30 Temperature Pulse Rate 67 66 Respiratory Rate 19 43 H Blood Pressure 178/74 H Pulse Oximetry 94 95 Oxygen Delivery Method 03/16/23 03:31 03/16/23 03:31 03/16/23 03:42 Temperature 96.6 F L Pulse Rate 65 76 Respiratory Rate 41 H 22 Blood Pressure 149/67 H 149/67 H Pulse Oximetry 94 94 Oxygen Delivery Method Room Air MDM - SOB/Dyspnea Lab Data 03/16/23 01:48 03/16/23 01:48 Labs: Lab Results 03/16/23 03/16/23 03/16/23 Range/Units 01:11 01:48 01:48 WBC 7.2 (4.5-11.0) X10^3/uL RBC 4.11 L (4.5-5.9) X10^6/uL Hgb 13.6 (13.5-17.5) g/dL Hct 39.4 L (41-53) % MCV 95.7 (80-100) fL MCH 33.2 (26-34) PG MCHC 34.6 (30-36) % RDW 12.7 (11.6-14.8) % Plt Count 137 L (150-400) X10^3/uL Neut % (Auto) 70.5 (50-75) % Lymph % (Auto) 17.3 L (25-40) % Snyder % (Auto) 8.0 (3-14) % Eos % (Auto) 3.7 (2-4) % Baso % (Auto) 0.5 (0-2) % Neut # (Auto) 5100 (3923-5471) /uL Lymph # (Auto) 1300 (1477-0773) /uL Snyder # (Auto) 600 (0-900) /uL Eos # (Auto) 300 (0-450) /uL Baso # (Auto) 0 (0-100) /uL PT 12.8 H (10.1-12.7) SECONDS INR 1.1 (0.9-1.3) APTT 31 (26-36) SECONDS Sodium (137-145) mmol/L Potassium (3.4-5.1) mmol/L Chloride (98-107) mmol/L Carbon Dioxide (22-32) mmol/L BUN (9-20) mg/dL Creatinine (0.66-1.25) mg/dL Estimated GFR (>60) mL/min BUN/Creatinine Ratio (6-22) Glucose (80-110) mg/dL Calcium (8.4-10.2) mg/dL Total Bilirubin (0.2-1.3) mg/dL AST (17-59) IU/L ALT (<50) IU/L Alkaline Phosphatase (38-126) U/L Total Creatine Kinase (55-170) U/L Troponin I (0.01-0.034) ng/mL NT-Pro-B Natriuret Pep (<125) pg/mL Total Protein (6.3-8.2) g/dL Albumin (3.5-5.0) g/dL Globulin (1.7-4.1) g/dL Albumin/Globulin Ratio (1.0-2.8) Lipase (23-300) U/L Chlamy pneumoniae PCR Not detected (Not Detect) Adenovirus (PCR) Not detected (Not Detect) B. pertussis DNA (PCR) Not detected (Not Detecte) B.parapertussis DNA PCR Not detected (Not Detecte) Coronavirus OC43 (PCR) Not detected (Not Detect) Coronavirus HKU1 (PCR) Not detected (Not Detect) Coronavirus 229E (PCR) Not detected (Not Detect) SARS-CoV-2 (PCR) Not detected (Not Detecte) Coronavirus NL63 (PCR) Not detected (Not Detect) Human Metapneumovir PCR Not detected (Not Detect) Influenza Type A (PCR) Not detected (Not Detect) Influenza Type B (PCR) Not detected (Not Detect) M. pneumoniae (PCR) Not detected (Not Detect) Parainfluenza 1 (PCR) Not detected (Not Detect) Parainfluenza 2 (PCR) Not detected (Not Detect) Parainfluenza 3 (PCR) Not detected (Not Detect) Parainfluenza 4 (PCR) Not detected (Not Detect) RSV (PCR) Not detected (Not Detect) Entero/Rhino (PCR) Detected H (Not Detect) 03/16/23 Range/Units 01:48 WBC (4.5-11.0) X10^3/uL RBC (4.5-5.9) X10^6/uL Hgb (13.5-17.5) g/dL Hct (41-53) % MCV (80-100) fL MCH (26-34) PG MCHC (30-36) % RDW (11.6-14.8) % Plt Count (150-400) X10^3/uL Neut % (Auto) (50-75) % Lymph % (Auto) (25-40) % Snyder % (Auto) (3-14) % Eos % (Auto) (2-4) % Baso % (Auto) (0-2) % Neut # (Auto) (3286-4469) /uL Lymph # (Auto) (1413-0540) /uL Snyder # (Auto) (0-900) /uL Eos # (Auto) (0-450) /uL Baso # (Auto) (0-100) /uL PT (10.1-12.7) SECONDS INR (0.9-1.3) APTT (26-36) SECONDS Sodium 137 (137-145) mmol/L Potassium 4.5 (3.4-5.1) mmol/L Chloride 107 (98-107) mmol/L Carbon Dioxide 23 (22-32) mmol/L BUN 36 H (9-20) mg/dL Creatinine 1.12 (0.66-1.25) mg/dL Estimated GFR > 60 (>60) mL/min BUN/Creatinine Ratio 32.1 H (6-22) Glucose 108 (80-110) mg/dL Calcium 10.2 (8.4-10.2) mg/dL Total Bilirubin 0.7 (0.2-1.3) mg/dL AST 19 (17-59) IU/L ALT 21 (<50) IU/L Alkaline Phosphatase 43 (38-126) U/L Total Creatine Kinase 28 L (55-170) U/L Troponin I < 0.012 (0.01-0.034) ng/mL NT-Pro-B Natriuret Pep 827 H (<125) pg/mL Total Protein 7.2 (6.3-8.2) g/dL Albumin 4.1 (3.5-5.0) g/dL Globulin 3.1 (1.7-4.1) g/dL Albumin/Globulin Ratio 1.3 (1.0-2.8) Lipase 63 (23-300) U/L Chlamy pneumoniae PCR (Not Detect) Adenovirus (PCR) (Not Detect) B. pertussis DNA (PCR) (Not Detecte) B.parapertussis DNA PCR (Not Detecte) Coronavirus OC43 (PCR) (Not Detect) Coronavirus HKU1 (PCR) (Not Detect) Coronavirus 229E (PCR) (Not Detect) SARS-CoV-2 (PCR) (Not Detecte) Coronavirus NL63 (PCR) (Not Detect) Human Metapneumovir PCR (Not Detect) Influenza Type A (PCR) (Not Detect) Influenza Type B (PCR) (Not Detect) M. pneumoniae (PCR) (Not Detect) Parainfluenza 1 (PCR) (Not Detect) Parainfluenza 2 (PCR) (Not Detect) Parainfluenza 3 (PCR) (Not Detect) Parainfluenza 4 (PCR) (Not Detect) RSV (PCR) (Not Detect) Entero/Rhino (PCR) (Not Detect) Imaging Data Chest x-ray: Radiologist's Impression: Severiano Guerrero??62??M??1960 ? Allergy/Adv: No Known Drug Allergies Close Chest X-Ray (Signed) Cristian Mccallum - 03/16/23 Outside Echo 10/22/22 Knee X-Ray (Signed) Harshil Suarez - 05/27/22 PFT Result 09/05/21 Outside Echo 04/27/20 Radiology Report (Cancelled) Nneka Perea - 06/25/19 Myocardial Perfusion Scan Nuc Med (Signed) Nneka Perea - 06/25/19 DI Result CC 06/07/19 Lumbar Spine MRI (Signed) Debora Guo - 04/26/19 ECHO-Doppler Report 04/11/19 [place] [address] XRay Report Signed Patient: Seveirano Guerrero MR#: [id number] : 1960 Acct:[id number] Age/Sex: 62 / M Date of Service: 03/16/23 Loc: Accession Number: [id number] ?? Procedure: XR chest 1V Ordering Provider: Nelda Steen D.O. PROCEDURE:? XR CHEST 1V ? INDICATIONS:? SOB, wheezing, chest congestion. ? TECHNIQUE:? One view of the chest was acquired.? ? COMPARISON:? None. ? FINDINGS:? ? Surgical changes and devices:? Postsurgical changes demonstrated within the mediastinum with multiple mediastinum wires.? ? Lungs and pleura:? Lungs are clear.? No pleural effusions or pneumothorax.? ? Mediastinum:? Mediastinal contours appear normal.? Heart size is normal.? ? Bones and chest wall:? No suspicious bony lesions.? Overlying soft tissues appear unremarkable.? ? ? IMPRESSION:? ? 1.? No acute cardiopulmonary disease. ? ? ? Dictated by: Cristian Mccallum M.D. on 03/16/2023 at 1:43 ? ? Approved by: Cristian Mccallum M.D. on 03/16/2023 at 1:46?? ECG Data Attestation: I personally reviewed and interpreted this ECG as follows: Prior ECG tracings: not available for review Interpretation: Sinus rhythm occasional PVC rate of 69 IL 170 QRS of 92 and QTC 435. No acute ST elevation appreciated no depression. Some motion artifact appears in V2. Left axis deviation. Potential prior inferior infarct. No priors for comparison. MDM Narrative Medical decision making narrative: 62-year-old male with what sounds like likely upper respiratory infection causing some tightness and wheezing in his chest. Patient's wheezy on exam has some nasal congestion, he has never required inhalers or nebs as an outpatient and does have risk factors for CAD, and prior aortic dissection repair. Patient is slightly hypertensive but not hypoxic, no tachypnea or accessory muscle use on exam. Patient was given DuoNebs, Solu-Medrol, respiratory panel was obtained, EKG, chest x-ray and labs. Chart patient has echo performed on 10/22/2022 at outside facility ([facility]) scanned in that shows EF of 55-60%, mild LV dilation mild LVH, mild RV dilation with normal RV function, moderate biatrial dilation, moderate mitral regurg. Prior ascending aortic dissection repair with likely residual dissection in his ascending aorta, moderate aortic regurg pressure half time is 500 milliseconds. Trace tricuspid regurg. On recheck patient feels much improved after a DuoNeb. He states he feels like he is using his full lungs to breathe rather than the top 3rd. On auscultation his wheeze has resolved. Patient states he was starting to feel tight again. Mildly wheezy the base but not appreciated in the upper lungs. Patient continues to be clear over all, was given one additional neb. On recheck patient continues to feel much improved. He is able to ambulate to the bathroom without issue. No hypoxia. Patient feels comfortable for discharge home and on his examination I think he is appropriate. Was given inhaler with spacer and training here in the emergency department. Discussed return precautions. Lab workup shows no leukocytosis, hemoglobin 13.6, platelets of 137 slightly lower than prior in 2019. Coags negative, BUN 36 electrolytes normal, renal function is appropriate and at baseline, troponins negative, BNP is 827 patient does not have priors for comparison, based on age adjusted cut off from the lab patient is still under the 900 cut off level. Patient's respiratory panel is positive for entero/rhinovirus. Chest x-ray shows no acute disease, pulmonary edema, pneumonia or other changes. Patient's echo from approximately 4 months ago at that time showed an EF of 50-60%. Discussed with patient would treat with steroids, albuterol as needed, could do a short course of Lasix but patient is already on spironolactone. And will hold off at this time. Discharge Plan Departure Patient Disposition: Home Clinical Impression: Reactive airway disease, Enterovirus infection Instructions: DI for Chronic Obstructive Pulmonary Disease Activity Restrictions/Additional Instructions: Please follow-up with your physician for recheck, call to set up an appointment. Your workup today is positive for a viral infection called entero/rhinovirus, this is likely exacerbating your chronic early COPD and causing your wheezing today. Continue your home medications as prescribed. You may take prednisone daily until completed. You may use albuterol 2-4 puffs every 4 hours as needed for symptoms. Prescription sent to [email or web address] in [place]. Please return for worsening symptoms new chest pain, wheezing or tightness in her chest, lightheadedness or passing out, fevers, coughing up blood, persistent vomiting, new swelling in your extremities or other new or concerning changes. Prescriptions: New prednisone 10 mg tablets,dose pack See Rx Instructions .ROUTE .COMPLEX Qty: 21 0RF Rx Instructions: You may take 6 mg p.o. x1 day, then 5 mg p.o. x1 day, then 4 mg p.o. x1 day, then 3 mg p.o. x1 day, then 2 mg p.o. x1 day then 1 mg p.o. x1 day albuterol sulfate 90 mcg/actuation HFA aerosol inhaler 2 puff inhalation Q4-6H PRN (Reason: shortness of breath or wheezing) Qty: 8.5 0RF No Action spironolactone 25 mg tablet 25 mg PO QPM Qty: 90 2RF montelukast 10 mg tablet 10 mg PO DAILY Qty: 90 2RF atorvastatin 20 mg tablet 20 mg PO BEDTIME Qty: 90 2RF losartan 100 mg tablet 100 mg PO DAILY Qty: 90 0RF Rx Instructions: must make appointment for an annual visit at minimum to be seen before next number 90 refill cyclobenzaprine 10 mg tablet 10 mg PO Q8H Qty: 90 0RF Rx Instructions: APPT DUE PRIOR TO END OF RX/FUTURE FILLS. PLEASE CALL [facility] TO GET SCHEDULED WITH NEW PCP. THANK YOU 02/16/23. acetaminophen 325 mg capsule 325 mg PO Q6H PRN (Reason: Pain) Patient Comments: Alternating with Ibu aspirin [Adult Low Dose Aspirin] 81 mg tablet,delayed release (DR/EC) 81 mg PO DAILY carvedilol 6.25 mg tablet 12.5 mg PO BID ibuprofen 600 mg Tablet 600 mg PO TID acetaminophen [Tylenol] 325 mg capsule 650 mg PO QID PRN (Reason: pain) Qty: 60 0RF Referrals: Scotty Encinas MD [Primary Care Provider] - Stand Alone Forms: Patient Portal/API
[2023-03-16] MEDS: ALBUTEROL/IPRATROPIUM 3 ML AMPUL INH ×2 (01:40→02:23)
[2023-03-16] MEDS: methylPREDNISolone 125 MG/2 ML VIAL IV (01:46)
[2023-03-16 02:02] LABS: Add Manual Diff / Slide Review NO; Basophils Absolute Auto 0 /uL (0-100); Basophils Percent Auto 0.5 % (0-2); Eosinophils Absolute Auto 300 /uL (0-450); Eosinophils Percent Auto 3.7 % (2-4); Hematocrit 39.4 % (41-53); Hemoglobin 13.6 g/dL (13.5-17.5); Lymphocytes Absolute Auto 1300 /uL (1100-4500); Lymphocytes Percent Auto 17.3 % (25-40); Mean Corpuscular HGB Conc 34.6 % (30-36); Mean Corpuscular Hemoglobin 33.2 PG (26-34); Mean Corpuscular Volume 95.7 fL (80-100); Monocytes Absolute Auto 600 /uL (0-900); Neutrophils Absolute Auto 5100 /uL (1500-7000); Neutrophils Percent Auto 70.5 % (50-75); Platelet Count 137 X10^3/uL (150-400); Red Blood Cell Count 4.11 X10^6/uL (4.5-5.9); Red Cell Distribution Width 12.7 % (11.6-14.8); White Blood Cell Count 7.2 X10^3/uL (4.5-11.0)
[2023-03-16 02:04] LABS: INR 1.1 (0.9-1.3); Prothrombin Time 12.8 SECONDS (10.1-12.7)
[2023-03-16 02:06] LABS: PTT Partial Thromboplastin Tim 31 SECONDS (26-36)
[2023-03-16 02:08] LABS: Alanine Aminotransferase 21 IU/L (<50); Albumin 4.1 g/dL (3.5-5.0); Albumin Globulin Ratio 1.3 (1.0-2.8); Alkaline Phosphatase 43 U/L (38-126); Aspartate Aminotransferase 19 IU/L (17-59); BUN Creatinine Ratio 32.1 (6-22); Bilirubin Total 0.7 mg/dL (0.2-1.3); Blood Urea Nitrogen 36 mg/dL (9-20); Calcium 10.2 mg/dL (8.4-10.2); Carbon Dioxide 23 mmol/L (22-32); Chloride 107 mmol/L (98-107); Creatine Kinase 28 U/L (55-170); Estimated Glomerular Filt Rate > 60 mL/min (>60); Globulin 3.1 g/dL (1.7-4.1); Glucose 108 mg/dL (80-110); HEMOLYSIS < 15 (0-50); Lipase 63 U/L (23-300); Potassium 4.5 mmol/L (3.4-5.1); Sodium 137 mmol/L (137-145); Total Protein 7.2 g/dL (6.3-8.2)
[2023-03-16 02:19] LABS: NT-proBNP (BNP-Adult 18+) 827 pg/mL (<125); Troponin I < 0.012 ng/mL (0.01-0.034)
[2023-03-16 02:25] LABS: Adenovirus Not Detected (Not Detect); Coronavirus 229E Not Detected (Not Detect); Coronavirus HKU1 Not Detected (Not Detect); Coronavirus NL 63 Not Detected (Not Detect); Coronavirus OC43 Not Detected (Not Detect); Human Metapneumovirus Not Detected (Not Detect); Human Rhinovirus/Enterovirus Detected (Not Detect); Influenza A Not Detected (Not Detect); Influenza B Not Detected (Not Detect); Parainfluenza Virus 1 Not Detected (Not Detect); Parainfluenza Virus 2 Not Detected (Not Detect); Parainfluenza Virus 3 Not Detected (Not Detect); Parainfluenza Virus 4 Not Detected (Not Detect); SARS- CoV-2 Not Detected (Not Detecte)
[2023-03-16 02:26] LABS: B. parapertussis Not Detected (Not Detecte); Bordetella pertussis Not Detected (Not Detecte); Chlamydophila pneumoniae Not Detected (Not Detect); Mycoplasma pneumoniae Not Detected (Not Detect); Respiratory Syncytial Virus Not Detected (Not Detect)
[2023-03-16] MEDS: ALBUTEROL HFA PREPACK 1 BOX MISC (03:40)
== END 2023-03-16 03:44 | disposition home or self-care (01) ==
PROVIDERS: Emergency Provider Emergency Medicine; PCP Student in an Organized Health Care Education/Training Program
DX: J45.909 Unspecified asthma, uncomplicated (principal); B34.1 Enterovirus infection, unspecified; Z20.822 Contact with and (suspected) exposure to COVID-19
CPT/HCPCS: 36415; 71045; 80053; 82550; 83690; 83880; 84484; 85025; 85610; 85730; 87633; 93005; 94640; 96374; 99284; J2930

== ENCOUNTER 2023-06-26 07:44 | Day surgery (SDC) | payer OTHER, SELFPAY ==
[2023-05-22 08:34] VITALS: BMI 32.4
[2023-06-26 08:11] VITALS: BP 141/58; PULSE 96; RESP 16; TEMP 36.2; O2SAT 98; BMI 31.1
[2023-06-26] MEDS: LACTATED RINGERS 1,000 ML 42 ML IV (08:24)
--- NOTE | 2023-06-26 09:17 | P.HP_ITS ---
History of Present Illness History of Present Illness Date Patient Seen: 06/26/23 Time Patient Seen: 09:17 Chief complaint: Colonoscopy Narrative: Colon cancer screening. Last scope over 7 years ago. No family history for colon cancer, no current symptoms of concern. [facility] Medical History COPD (chronic obstructive pulmonary disease) Abdominal aortic aneurysm Essential hypertension Kidney disease History of transfusion Claudication of both lower extremities (~04/2019) Dissection of thoracoabdominal aorta Cardiomyopathy Thoracic aortic aneurysm Incisional hernia Vision disorder Chronic cough (~2014) Migraines (~1968) Fractures (~1969) Chronic back pain (~1984) Measles Chicken pox Kidney stones Surgical History History of thoracic aortic aneurysm repair Anesthesia History of total knee replacement (~2015) History of hernia repair (~1985) History of appendectomy (~2008) History of cholecystectomy (~2013) Family History Father Hypertension Grandfather Stroke Social History marital status: household members: spouse occupational status: previously employed Smoking Status: Former smoker Tobacco: How many years used: 40 alcohol intake: current substance use type: does not use Meds Home Medications and Allergies Home Medications Medication Instructions Recorded Confirmed Type aspirin 81 mg tablet,delayed 81 mg PO DAILY 02/07/19 06/26/23 History release (Adult Low Dose Aspirin) acetaminophen 325 mg capsule 650 mg (2 x 325 mg) PO QID PRN 02/12/21 06/26/23 Rx (Tylenol) pain #60 caps ibuprofen 600 mg tablet 600 mg PO TID 02/12/21 06/26/23 History albuterol sulfate 90 mcg/actuation 2 puff inhalation Q4-6H PRN 03/16/23 06/26/23 Rx aerosol inhaler shortness of breath or wheezing #8.5 grams atorvastatin 20 mg tablet 20 mg PO BEDTIME #90 tabs 05/22/23 06/26/23 Rx carvedilol 25 mg tablet 25 mg PO BID #180 tabs 05/22/23 06/26/23 Rx cyclobenzaprine 10 mg tablet 10 mg PO Q8H PRN muscle spasm #90 05/22/23 06/26/23 Rx tabs losartan 100 mg tablet 100 mg PO DAILY #90 tabs 05/22/23 06/26/23 Rx montelukast 10 mg tablet 10 mg PO DAILY #90 tabs 05/22/23 06/26/23 Rx spironolactone 50 mg tablet 50 mg PO DAILY #90 tabs 05/22/23 06/26/23 Rx Allergies Allergy/AdvReac Type Severity Reaction Status Date / Time No Known Drug Allergies Allergy Verified 05/22/23 08:13 Review of Systems Review of Systems ROS: Yes All systems reviewed with the patient and are negative except as otherwise documented Exam Vital Signs (past 8 hours): - 06/26/23 08:11 Temperature 97.2 F L Pulse Rate 96 H Respiratory Rate 16 Blood Pressure 141/58 H Pulse Oximetry 98 Oxygen Delivery Method Room Air Oxygen Delivery Method Room Air Const General: cooperative and comfortable Nutritional Appearance: overweight HENMT Head: normocephalic and atraumatic Eyes General: appearance normal, both eyes and all related structures Sclera: normal sclerae Neck Neck: trachea midline Resp Effort & Inspection: normal respiratory effort and able to speak in complete sentences Cardio Rate: regular rate Rhythm: regular rhythm GI Palpation: soft and No tender Skin General: turgor normal and atrophy Neuro General: patient alert, patient awake and patient oriented x3 Psych Appearance: grossly normal Mental Status: mental status grossly normal Judgment: judgment good Assessment & Plan Assessment & Plan narrative: Colon cancer screening Plan: Colonoscopy with anesthesia Time Spent With Patient Time with patient: less than 30 minutes
--- NOTE | 2023-06-26 09:38 | PM.OP.COLON ---
Operative Date/Time/Diagnoses Date of procedure: 06/26/23 Time of procedure: 09:39 Pre-op diagnosis: Colon cancer screening Post-op diagnosis: same Procedure & Clinicians Study performed: Colonoscopy with anesthesia Indications: Colon cancer screening Surgeon: Melvina Spencer Procedure Notes Procedure in detail: Preop diagnosis: Colon cancer screening Postop diagnosis: Same Operative procedure: Colonoscopy with anesthesia Surgeon: Charlotte Spencer MD Findings: Normal colonoscopy. Scant medial diverticulosis of the sigmoid colon. No polyps Procedure: Patient placed in lateral position. Rectal exam performed showing normal tone no masses. Colonoscope inserted into the rectum and advanced to ileocecal valve with minimal difficulty. Insufflation and extraction scope and the above findings. Impression: No Polyps identified. Medium size, scant diverticulosis of the sigmoid colon. Plan: Repeat colonoscopy in 10 years unless otherwise indicated by change in clinical condition Findings: divertiulosis Specimen(s): none sent Complications: none Post-procedure Recommendations: Colonoscopy in 10 years Follow up: as needed Disposition: PACU
[2023-06-26 09:43] VITALS: BP 108/45; PULSE 67; RESP 19; TEMP 36.6; O2SAT 97
[2023-06-26 09:50] VITALS: BP 114/49; PULSE 73; RESP 15; O2SAT 97
[2023-06-26 09:53] VITALS: BP 108/46; PULSE 58; RESP 12; O2SAT 98
[2023-06-26 09:56] VITALS: BP 110/48; PULSE 60; RESP 16; O2SAT 97
== END 2023-06-26 10:02 | disposition home or self-care (01) ==
PROVIDERS: PCP Family Medicine; Referring Provider Surgery; Visit Provider Surgery
PROC: 0DJD8ZZ Inspection of Lower Intestinal Tract, Via Natural or Artificial Opening Endoscopic (ICD-10-PCS; CPT 45378; principal; 2023-06-26 09:00)
DX: Z12.11 Encounter for screening for malignant neoplasm of colon (principal); K57.30 Diverticulosis of large intestine without perforation or abscess without bleeding
CPT/HCPCS: 45378; J2704

== ENCOUNTER → 2023-09-28 09:34 | Outpatient (CLI) | payer MEDICARE, OTHER, SELFPAY ==
[2023-05-22 08:34] VITALS: BMI 32.4
[2023-10-01 11:26] LABS: Prostate Specific Antigen 4.59 ng/mL (0.10-4.00)
== END ==
PROVIDERS: PCP Family Medicine; Referring Provider Urology; Visit Provider Urology
DX: R97.20 Elevated prostate specific antigen [PSA] (principal)
CPT/HCPCS: 36415; 84153

== ENCOUNTER → 2023-10-26 08:35 | Outpatient (CLI) | payer MEDICARE, OTHER, SELFPAY ==
[2023-05-22 08:34] VITALS: BMI 32.4
[2023-10-26 09:46] LABS: Alanine Aminotransferase 19 IU/L (<50); Albumin 3.5 g/dL (3.5-5.0); Albumin Globulin Ratio 1.5 (1.0-2.8); Alkaline Phosphatase 53 U/L (38-126); Aspartate Aminotransferase 18 IU/L (17-59); BUN Creatinine Ratio 30.1 (6-22); Bilirubin Total 0.4 mg/dL (0.2-1.3); Blood Urea Nitrogen 47 mg/dL (9-20); Calcium 8.9 mg/dL (8.4-10.2); Carbon Dioxide 24 mmol/L (22-32); Chloride 112 mmol/L (98-107); Cholesterol 101 mg/dL (140-199); Estimated Glomerular Filt Rate 49 mL/min (>60); Globulin 2.4 g/dL (1.7-4.1); Glucose 110 mg/dL (80-110); HDL Cholesterol 46 mg/dL (40-60); HEMOLYSIS < 15 (0-50); LDL Cholesterol Calculated 44 mg/dL (<100); Potassium 5.5 mmol/L (3.4-5.1); Sodium 137 mmol/L (137-145); Total Protein 5.9 g/dL (6.3-8.2); Triglycerides 57 mg/dL (35-150)
[2023-10-26 18:04] LABS: HIV 1 & 2 Ab/Ag 4th Gen Combo NEGATIVE (NEGATIVE); Hep C Virus Ab w/Reflex Quant NEGATIVE s/c (NEGATIVE)
== END ==
PROVIDERS: PCP Family Medicine; Referring Provider Family Medicine; Visit Provider Family Medicine
DX: Z00.00 Encounter for general adult medical examination without abnormal findings (principal); I71.40 Abdominal aortic aneurysm, without rupture, unspecified; J44.9 Chronic obstructive pulmonary disease, unspecified; I10 Essential (primary) hypertension
CPT/HCPCS: 36415; 80053; 80061; 86803; 87389

== ENCOUNTER → 2024-01-05 13:34 | Outpatient (CLI) | payer MEDICARE, OTHER, SELFPAY ==
[2023-05-22 08:34] VITALS: BMI 32.4
[2024-01-05 14:54] LABS: BUN Creatinine Ratio 23.1 (6-22); Blood Urea Nitrogen 33 mg/dL (9-20); Calcium 8.7 mg/dL (8.4-10.2); Carbon Dioxide 25 mmol/L (22-32); Chloride 107 mmol/L (98-107); Estimated Glomerular Filt Rate 54 mL/min (>60); Glucose 101 mg/dL (80-110); HEMOLYSIS < 15 (0-50); Potassium 4.8 mmol/L (3.4-5.1); Sodium 137 mmol/L (137-145)
[2024-01-05 15:24] LABS: Creatinine Urine Random 121.13 mg/dL
[2024-01-05 15:32] LABS: Microalbumin Urine Random < 0.6 mg/dL (0-1.6)
== END ==
PROVIDERS: PCP Family Medicine; Referring Provider Family Medicine; Visit Provider Family Medicine
DX: E87.5 Hyperkalemia (principal); N28.9 Disorder of kidney and ureter, unspecified
CPT/HCPCS: 36415; 80048; 82043; 82570

== ENCOUNTER → 2024-02-16 07:57 | Outpatient (CLI) | payer MEDICARE, OTHER, SELFPAY ==
[2023-05-22 08:34] VITALS: BMI 32.4
--- NOTE | 2024-02-16 07:58 | DI.MRI.S_ITS ---
PROCEDURE: MR LUMBAR SPINE WO CON INDICATIONS: LBP, Rt foot numbness, Rt leg weakness TECHNIQUE: Noncontrast sagittal T1 spin echo and T2 fast echo, sagittal STIR, and T2 fast spin echo through the lumbar spine. In cases with scoliosis, additional coronal T2 fast spin echo may be performed. COMPARISON: [facility], MR, MR LUMBAR SPINE WO CON, 04/26/2019, 11:53. FINDINGS: Image quality: Excellent. Alignment and Curvature: Mild S-shaped scoliotic curvature as before. 3-4 mm retrolisthesis at L3-4, L4-5, and L5-S1. Bone Marrow: Marrow is of normal overall signal. No acute vertebral body compression fractures. There is osseous fusion across the anterior L2-3 disc space. Spinal Cord: Conus medullaris terminates at the L1 level. Visualized cord demonstrates normal signal and size. Paraspinous Soft Tissues: No paravertebral masses. Grade 2-3 fatty infiltration of the paraspinous musculature. T12-L1: Disc desiccation and mild facet hypertrophy is seen without significant spinal canal stenosis or neural foraminal narrowing. L1-L2: Disc desiccation and moderate circumferential disc bulging with moderate bilateral facet hypertrophy and epidural lipomatosis. Findings result in [id number] narrowing of the spinal canal as well as mild left neural foraminal narrowing. No significant right neural foraminal narrowing. Findings have mildly progressed when compared to the MRI from 04/26/2019. L2-L3: Severe loss of disc space height again seen with interval osseous fusion across the disc space. Moderate bilateral facet hypertrophy. Findings result in mild narrowing of the spinal canal that appears less prominent when compared to the MRI from 2019. There is mild narrowing of the left neural foramina without significant right neural foraminal narrowing. L3-L4: Disc desiccation and loss of disc space height with circumferential disc bulging and retrolisthesis as well as severe bilateral facet hypertrophy and epidural lipomatosis. Findings result in severe narrowing of the spinal canal with effacement of the lateral recesses as well as moderate to severe right and moderate left neural foraminal narrowing. Findings have mildly progressed when compared to the MRI from 04/26/2019. L4-L5: Disc desiccation with grade 1 and retrolisthesis and circumferential disc bulging as well as moderate to severe bilateral facet hypertrophy and mild epidural lipomatosis. Findings result in severe narrowing of the spinal canal as well as effacement of the lateral recesses and moderate bilateral neural foraminal narrowing. L5-S1: Disc desiccation with grade 1 retrolisthesis and mild circumferential disc bulging as well as mild bilateral facet hypertrophy. Findings result in mild narrowing of the spinal canal as well as severe right and moderate left neural foraminal narrowing findings appear similar when compared to the prior MRI. IMPRESSION: 1. Multilevel degenerative disc disease and facet hypertrophy as described in detail in the body of the report. Findings have progressed when compared to the MRI from 04/26/2019. 2. Spinal canal narrowing is severe at the L3-4 and L4-5 levels. 3. High-grade neural foraminal narrowing at the L3-4 and L5-S1 levels on the right. Approved by: Cristhian Story M.D. on 02/16/2024 at 12:27
== END ==
LOC: MRI 07:58
PROVIDERS: PCP Family Medicine; Referring Provider Family Medicine; Visit Provider Family Medicine
DX: M51.36 Other intervertebral disc degeneration, lumbar region (principal); M51.37 Other intervertebral disc degeneration, lumbosacral region; M47.816 Spondylosis without myelopathy or radiculopathy, lumbar region; M47.817 Spondylosis without myelopathy or radiculopathy, lumbosacral region; M48.061 Spinal stenosis, lumbar region without neurogenic claudication; M48.07 Spinal stenosis, lumbosacral region; M54.50 Low back pain, unspecified
CPT/HCPCS: 72148

== ENCOUNTER → 2024-10-05 13:22 | Outpatient (CLI) | payer MEDICARE, OTHER, SELFPAY ==
[2023-05-22 08:34] VITALS: BMI 32.4
[2024-10-05 14:05] LABS: Blood Urea Nitrogen 36 mg/dL (9-20); Calcium 9.6 mg/dL (8.4-10.2); Carbon Dioxide 24 mmol/L (22-32); Chloride 107 mmol/L (98-107); Estimated Glomerular Filt Rate 46 mL/min (>60); Glucose 97 mg/dL (80-110); HEMOLYSIS < 15 (0-50); Sodium 137 mmol/L (137-145)
[2024-10-05 14:09] LABS: Potassium 5.6 mmol/L (3.4-5.1)
== END ==
PROVIDERS: PCP Family Medicine; Referring Provider Family Medicine; Visit Provider Family Medicine
DX: N18.30 Chronic kidney disease, stage 3 unspecified (principal)
CPT/HCPCS: 36415; 80048

== ENCOUNTER → 2024-10-26 08:34 | Outpatient (CLI) | payer MEDICARE, OTHER, SELFPAY ==
[2023-05-22 08:34] VITALS: BMI 32.4
[2024-10-26 09:11] LABS: Add Manual Diff / Slide Review NO; Basophils Absolute Auto 0 /uL (0-100); Basophils Percent Auto 0.9 % (0-2); Eosinophils Absolute Auto 200 /uL (0-450); Eosinophils Percent Auto 4.5 % (2-4); Hemoglobin 12.7 g/dL (13.5-17.5); Lymphocytes Absolute Auto 1700 /uL (1100-4500); Lymphocytes Percent Auto 32.3 % (25-40); Mean Corpuscular HGB Conc 34.3 % (30-36); Mean Corpuscular Hemoglobin 33.8 PG (26-34); Mean Corpuscular Volume 98.4 fL (80-100); Monocytes Absolute Auto 500 /uL (0-900); Monocytes Percent Auto 10.1 % (3-14); Neutrophils Absolute Auto 2800 /uL (1500-7000); Neutrophils Percent Auto 52.2 % (50-75); Platelet Count 110 X10^3/uL (150-400); Red Blood Cell Count 3.76 X10^6/uL (4.5-5.9); Red Cell Distribution Width 13.1 % (11.6-14.8); White Blood Cell Count 5.4 X10^3/uL (4.5-11.0)
[2024-10-26 09:38] LABS: Alanine Aminotransferase 24 IU/L (<50); Albumin 3.8 g/dL (3.5-5.0); Albumin Globulin Ratio 1.7 (1.0-2.8); Alkaline Phosphatase 47 U/L (38-126); Aspartate Aminotransferase 22 IU/L (17-59); BUN Creatinine Ratio 23.8 (6-22); Bilirubin Total 0.7 mg/dL (0.2-1.3); Blood Urea Nitrogen 35 mg/dL (9-20); Calcium 9.1 mg/dL (8.4-10.2); Carbon Dioxide 22 mmol/L (22-32); Chloride 110 mmol/L (98-107); Cholesterol 125 mg/dL (140-199); Estimated Glomerular Filt Rate 52 mL/min (>60); Globulin 2.3 g/dL (1.7-4.1); Glucose 109 mg/dL (70-99); HDL Cholesterol 58 mg/dL (40-60); HEMOLYSIS < 15 (0-50); LDL Cholesterol Calculated 55 mg/dL (<100); Sodium 136 mmol/L (137-145); Total Protein 6.1 g/dL (6.3-8.2); Triglycerides 62 mg/dL (35-150)
[2024-10-26 09:40] LABS: Potassium 5.7 mmol/L (3.4-5.1)
[2024-10-26 10:09] LABS: Prostate Specific Antigen Scrn 4.95 ng/mL (0.1-4.0)
[2024-10-26 10:52] LABS: Creatinine Urine Random 169.89 mg/dL
[2024-10-26 10:58] LABS: Microalbumin Urine Random < 0.6 mg/dL (0-1.6)
== END ==
LOC: LAB 08:38
PROVIDERS: PCP Family Medicine; Referring Provider Family Medicine; Visit Provider Family Medicine
DX: I12.9 Hypertensive chronic kidney disease with stage 1 through stage 4 chronic kidney disease, or unspecified chronic kidney disease (principal); N18.30 Chronic kidney disease, stage 3 unspecified; Z00.00 Encounter for general adult medical examination without abnormal findings; Z12.5 Encounter for screening for malignant neoplasm of prostate; J44.9 Chronic obstructive pulmonary disease, unspecified; I42.8 Other cardiomyopathies; I71.40 Abdominal aortic aneurysm, without rupture, unspecified; E87.5 Hyperkalemia
CPT/HCPCS: 36415; 80053; 80061; 82043; 82570; 85025; G0103

== ENCOUNTER → 2025-01-19 08:53 | Outpatient (CLI) | payer MEDICARE, OTHER, SELFPAY ==
[2023-05-22 08:34] VITALS: BMI 32.4
[2025-01-19 09:58] LABS: Hematocrit 38.5 % (41-53); Hemoglobin 13.1 g/dL (13.5-17.5)
[2025-01-19 10:02] LABS: Protein (Total) Urine Random < 5 mg/dL (0-12); Protein Creatinine Ratio Urine 0.01 GRAM/24H
[2025-01-19 10:24] LABS: Blood Urea Nitrogen 36 mg/dL (9-20); Calcium 9.1 mg/dL (8.4-10.2); Carbon Dioxide 25 mmol/L (22-32); Chloride 108 mmol/L (98-107); Estimated Glomerular Filt Rate 53 mL/min (>60); Glucose 105 mg/dL (70-99); HEMOLYSIS < 15 (0-50); Potassium 5.4 mmol/L (3.4-5.1); Sodium 138 mmol/L (137-145)
== END ==
PROVIDERS: PCP Family Medicine; Referring Provider Student in an Organized Health Care Education/Training Program; Visit Provider Student in an Organized Health Care Education/Training Program
DX: N05.9 Unspecified nephritic syndrome with unspecified morphologic changes (principal); R80.9 Proteinuria, unspecified; D63.1 Anemia in chronic kidney disease; D70.8 Other neutropenia
CPT/HCPCS: 36415; 80048; 82570; 84156; 85014; 85018

== ENCOUNTER → 2025-02-01 08:10 | Outpatient (CLI) | payer MEDICARE, OTHER, SELFPAY ==
[2023-05-22 08:34] VITALS: BMI 32.4
[2025-02-01 09:07] LABS: Hematocrit 37.2 % (41-53); Hemoglobin 12.8 g/dL (13.5-17.5)
[2025-02-01 09:29] LABS: Protein (Total) Urine Random 6 mg/dL (0-12); Protein Creatinine Ratio Urine 0.02 GRAM/24H
[2025-02-01 09:33] LABS: Alanine Aminotransferase 19 IU/L (<50); Albumin 3.9 g/dL (3.5-5.0); Albumin Globulin Ratio 1.6 (1.0-2.8); Alkaline Phosphatase 50 U/L (38-126); Blood Urea Nitrogen 34 mg/dL (9-20); Calcium 10.0 mg/dL (8.4-10.2); Carbon Dioxide 25 mmol/L (22-32); Chloride 106 mmol/L (98-107); Estimated Glomerular Filt Rate 53 mL/min (>60); Globulin 2.4 g/dL (1.7-4.1); Glucose 116 mg/dL (70-99); HEMOLYSIS < 15 (0-50); Potassium 5.1 mmol/L (3.4-5.1); Sodium 137 mmol/L (137-145); Total Protein 6.3 g/dL (6.3-8.2)
== END ==
PROVIDERS: PCP Family Medicine; Referring Provider Student in an Organized Health Care Education/Training Program; Visit Provider Student in an Organized Health Care Education/Training Program
DX: D70.9 Neutropenia, unspecified (principal); N05.9 Unspecified nephritic syndrome with unspecified morphologic changes; Z51.81 Encounter for therapeutic drug level monitoring; D63.1 Anemia in chronic kidney disease; R80.9 Proteinuria, unspecified
CPT/HCPCS: 36415; 80053; 82570; 84156; 85014; 85018

== ENCOUNTER → 2025-03-23 08:39 | Outpatient (CLI) | payer MEDICARE, OTHER, SELFPAY ==
[2023-05-22 08:34] VITALS: BMI 32.4
--- NOTE | 2025-03-23 08:40 | DI.US.S_ITS ---
PROCEDURE: US RENAL COMPLETE INDICATIONS: stage 3a kidney disease TECHNIQUE: Real-time scanning was performed of the kidneys and bladder, with image documentation. COMPARISON: None. FINDINGS: Kidneys: Kidneys are normal in size. Right kidney measures 11.3 cm long; left kidney measures 11.6 cm long. Right renal cortical thickness is 1.6 cm; left renal cortical thickness is 1.4 cm. Renal cortical echotexture is normal. No hydronephrosis or nephrolithiasis. No suspicious solid mass lesions. Simple cyst on the right measuring 2.0 centimeter. Bladder: Pre-void bladder volume is 46 mL. Post-void residual is not performed. . Pre-void images demonstrate no intraluminal masses or stones. On pre-void images, no ureteral jets are noted with color Doppler interrogation. (Of note, ureteral jets may not be detectable in up to 25% of cases due to insufficient differences in specific gravity between ureteral and bladder urine). Miscellaneous: No free pelvic fluid. IMPRESSION: No hydronephrosis. Dictated by: Jonathan Fletcher M.D. on 03/23/2025 at 10:46 Approved by: Jonathan Fletcher M.D. on 03/23/2025 at 10:49
== END ==
LOC: US 08:40
PROVIDERS: PCP Family Medicine; Referring Provider Student in an Organized Health Care Education/Training Program; Visit Provider Student in an Organized Health Care Education/Training Program
DX: N18.31 Chronic kidney disease, stage 3a (principal); N28.1 Cyst of kidney, acquired
CPT/HCPCS: 76770

== ENCOUNTER → 2025-04-05 15:34 | Outpatient (CLI) | payer MEDICARE, OTHER, SELFPAY ==
[2023-05-22 08:34] VITALS: BMI 32.4
--- NOTE | 2025-04-05 15:35 | DI.MRI.S_ITS ---
PROCEDURE: MR LUMBAR SPINE WO CON INDICATIONS: lumbar radiculopathy TECHNIQUE: Noncontrast sagittal T1 spin echo and T2 fast echo, sagittal STIR, and T2 fast spin echo through the lumbar spine. In cases with scoliosis, additional coronal T2 fast spin echo may be performed. COMPARISON: [facility], MR, MR LUMBAR SPINE WO CON, 02/16/2024, 8:44. FINDINGS: Image quality: Excellent. Alignment and Curvature: There is mild degenerative dextrocurvature centered at L2-L3 with rightward listhesis of L2 on L3 measuring approximately 10 mm and trace leftward listhesis of L1 on L2. There is mild retrolisthesis of L3 on L4 and L5 on S1. Bone Marrow: Marrow is of normal overall signal. No acute vertebral body compression fractures. Chronic L3 compression. Spinal Cord: Conus medullaris terminates at the L1 level. Visualized cord demonstrates normal signal and size. Paraspinous Soft Tissues: No paravertebral masses. T12-L1: No canal stenosis or foraminal stenosis. L1-L2: Disc bulge. Epidural lipomatosis. Facet hypertrophy. No significant canal stenosis. Epidural lipomatosis exert some mass effect on the bilateral exiting L1 nerve roots. L2-L3: Severe chronic disc height loss. Facet hypertrophy. No significant canal stenosis or foraminal stenosis. L3-L4: Stable findings. Trace retrolisthesis. Disc bulge. Facet hypertrophy. Epidural lipomatosis. Moderate to severe canal stenosis. Moderate to severe right foraminal narrowing with mild impingement on the right L3 nerve root in the right lateral recess. [id number] left foraminal narrowing. L4-L5: Stable findings. Disc bulge. Epidural lipomatosis. Facet arthropathy. Moderate to severe canal stenosis. Moderate right foraminal narrowing and mild left foraminal narrowing. L5-S1: Stable findings. Mild retrolisthesis. Facet hypertrophy. No canal stenosis. Moderate right foraminal narrowing and mild to moderate left foraminal narrowing. IMPRESSION: 1. Stable findings. Alignment unchanged. 2. Epidural lipomatosis contributes to canal stenosis at L3-L4 and L4-L5 as well as bilateral foraminal stenosis at L1-L2. 3. Canal stenosis is moderate to severe at L3-L4 and L4-L5. 4. Multilevel foraminal narrowing as described above. Findings include epidural lipomatosis at L1-L2 in the foramina bilaterally which may potentially result in radicular symptoms. There is also moderate to severe right foraminal narrowing at L3-L4 and moderate right foraminal narrowing at L4-L5 and L5-S1. Dictated by: Lee Zuniga M.D. on 04/06/2025 at 13:51 Approved by: Lee Zuniga M.D. on 04/06/2025 at 14:20
== END ==
LOC: MRI 15:34
PROVIDERS: PCP Family Medicine; Referring Provider Family Medicine; Visit Provider Neurological Surgery
DX: M54.16 Radiculopathy, lumbar region (principal); E88.2 Lipomatosis, not elsewhere classified; M48.061 Spinal stenosis, lumbar region without neurogenic claudication; M48.00 Spinal stenosis, site unspecified
CPT/HCPCS: 72148